=== PATIENT | female | born 1955 | race American Indian/Alaskan Native ===

== ENCOUNTER 2017-12-22 07:46 | Emergency (ER) | payer BC, OTHER ==
[2017-12-22] MEDS ORDERED: Ondansetron 4 MG/2 ML SDV IVPUSH ONE (08:27)
[2017-12-22] MEDS ORDERED: HYDROmorphone 0.5 MG/0.5 ML SYRINGE IVPUSH ONE (08:28)
[2017-12-22] MEDS ORDERED: Sodium Chloride 0.9% 10 ML Syringe FLUSH PRN (08:28)
[2017-12-22] MEDS ORDERED: LORazepam 1 MG Tab PO ONE ×2 (08:28→11:34)
[2017-12-22] MEDS ORDERED: Sodium Chloride 0.9% 1,000 ML IV SCH ×2 (08:30→09:45)
[2017-12-22] MEDS ORDERED: Ondansetron 4 MG/2 ML SDV ONE (08:34)
[2017-12-22] MEDS ORDERED: LORazepam 0.5 MG Tab PO ONE (09:37)
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
[2017-12-22] MEDS ORDERED: Acetaminophen/oxyCODONE 325-5 MG Tab PO ONE (11:34)
== END 2017-12-22 12:55 | disposition home or self-care (01) ==
LOC: JD.ED 07:46
DX: F11.23 Opioid dependence with withdrawal (principal); L03.116 Cellulitis of left lower limb; F17.210 Nicotine dependence, cigarettes, uncomplicated; I10 Essential (primary) hypertension; F41.9 Anxiety disorder, unspecified; Z79.899 Other long term (current) drug therapy
CPT/HCPCS: 36415; 80053; 81001; 83605; 85025; 96361; 96374; 96375; 99285; A9270; J1170; J2405; J7040; J7050; 99284